=== PATIENT | female | born 1975 | race Caucasian/White ===

== ENCOUNTER 2021-08-16 09:34 | Outpatient (CLI) | payer OTHER, SELFPAY | END 2021-08-16 09:35 | disposition home or self-care (01) | LOC: ANHSURGERY 09:37 | PROVIDERS: PCP Internal Medicine; Visit Provider Obstetrics & Gynecology | DX: D25.9 Leiomyoma of uterus, unspecified (principal); Z01.818 Encounter for other preprocedural examination | CPT/HCPCS: 36415; 86850; 86900; 86901 ==

== ENCOUNTER 2021-08-22 18:48 | Observation (INO) | payer OTHER, SELFPAY ==
[2021-08-15 13:02] VITALS: BMI 24.5
--- NOTE | 2021-08-15 13:18 | PC.NURSE ---
Report to the Outpatient Waiting Room, entrance under the green pavilion located off [facility], at time 6:00 on date 08/21/21. OR Time: 7:30. - You and your visitor will be asked a series of questions to screen for COVID 19 for your protection. - Only one visitor is allowed at this time. - The patient visitor is requested to leave or wait in car when not with patient. - A mask is required within the hospital. Patients may have clear liquids (water, carbonated beverages, clear teas, apple juice) until 3 hours prior to surgery (4:30) with a maximum of 20 ounces. - No food from midnight until time of surgery Take the following medications with a SIP of water the morning of surgery: NONE Medications to discontinue per physician: VITAMINS/SUPPLEMENTS Date to take last dose: 08/17/21 Please no make-up, nail indian, hairspray, perfume, deodorant, or body powder the day of surgery. No jewelry (including any body piercings) or valuables the day of surgery, leave them at home. Please take a shower or bath the night before, or the morning of, surgery with an antibacterial soap. Wear comfortable, loose fitting clothing. - Jewelry must be removed prior to entering the operating room. Rings and piercings that are not removed may be cut off. - The hospital will not accept responsibility for valuables. - Please leave all valuables, including medications, at home the day of surgery. If you are going home after surgery, a licensed recycling collections driver must drive you home. - NO public transportation without another adult. - We recommend that an adult stay with you for 24 hours following discharge. - We also recommend that you do not drive, make important decision, drink alcoholic beverages, or take any drugs that were not prescribed by your health care provider for at least 24 hours after your discharge time. Follow any additional instructions given to you from your surgeon. If you or anyone in your household have experienced Covid symptoms in the past week, please notify your surgeon or the nurse liaison at the phone number below for possible testing. Telephone instructions given to PT Hali CROSS and asked if any additional questions and then verbalized understanding. Patient advised to call surgeon office or pre surgery nurse liaison [phone] if any additional questions.
--- NOTE | 2021-08-20 14:43 | WPDANESEPPF ---
Anes - Initial Pre Proc Eval Procedure: Operation Date: 08/21/21 07:30 Proposed Procedures p Total Laparoscopic Hysterectomy with Bilateral Salpingectomy - Gurpreet Gordon MD Date/Time: 08/20/21 14:43 Surgeon: Gurpreet Gordon MD Pre Op Diagnosis: uterine leiomyoma Patient Data Age: 46 Gender: F Height: 1.63 m Weight: 65 kg Allergies Allergy/AdvReac Type Severity Reaction Status Date / Time No Known Allergies Allergy Verified 08/21/21 07:05 Home Medications Medication Instructions Recorded Confirmed Type lactobacillus combination no.4 3 3,000 mmu cells PO DAILY 08/15/21 08/21/21 History billion cell capsule (Probiotic) multivitamin 1 tablet PO DAILY 08/15/21 08/21/21 History norethindrone (contraceptive) 0.35 1 tablet PO DAILY 08/15/21 08/21/21 History mg tablet Patient hx anesthesia problems: none Family hx anesthesia problems: none Results Review: All pre-operative results and documents have been reviewed as part of the pre-operative evaluation. [facility] Social History Social History Smoking status: Never smoker Alcohol intake: current Drinks per week: 4 Substance use: never Substance use type: does not use Living arrangements: with family Spiritual care concerns: No Anes - Eval Final PreProcedure Day of Procedure 08/20/21 14:43 Patient weight: normal Heart: regular rate and rhythm Lungs: clear to auscultation Airway: Mallampati scale class II Neurological: alert and oriented Last oral intake: >/= 8 hours ASA classification: II Emergent: no Anesthetic plan: proceed Anesthesia type and monitoring: general ETT and standard monitoring Results Review: All pre-operative results and documents have been reviewed as part of the pre-operative evaluation. Informed Consent: The patient's anesthetic plan and its attendant risks and benefits were discussed with the patient/family/POA. Questions were solicited and answers provided to the satisfaction of the patient/family/POA.
[2021-08-21] VITALS (11 sets, daily range): BP systolic 93–140; BP diastolic 63–77; PULSE 69–104; RESP 12–18; TEMP 36.6–37.4; O2SAT 97–100
[2021-08-21] MEDS: KETOROLAC 15 MG/ML VIAL (*BKC) IV PUSH (06:30)
[2021-08-21] MEDS: LACTATED RINGERS 1,000 ML 30 ML IV CONT ×2 (06:30→10:22)
[2021-08-21] MEDS: ACETAMINOPHEN 500 MG TABLET 1000 MG PO (06:37)
--- NOTE | 2021-08-21 07:14 | WPDHPUPDATE1 ---
History and Physical Update Update Date/Time: 08/21/21 07:14 History and Physical has been reviewed, including an updated exam of the patient. There are NO changes in the patient's condition. Risks, benefits, and alternatives have been discussed and questions answered. Patient agrees to proceed with procedure.
[2021-08-21] MEDS: ceFAZolin 2 GM/D5W 50 ML 2 GM/50 ML BAG IVPB (07:28)
[2021-08-21] MEDS: ceFAZolin SODIUM 1 GM VIAL (08:19)
--- NOTE | 2021-08-21 10:32 | W.PM.PROC2 ---
Procedure Note - Detailed Date of Procedure 08/21/21 Pre-op Diagnosis uterine leiomyoma Post-op Diagnosis Same Procedure Performed Total laparoscopic hysterectomy. Surgeon Gurpreet Gordon MD Anesthesia General Indications Severe dysmenorrhea Findings Enlarged fibroid uterus, normal-appearing ovaries, Description of Procedure This patient was taken to the operating room. She was prepped and draped in the dorsal lithotomy position after induction of general anesthesia. The uterine manipulator and Rick cup were placed. This was done with a speculum and tenaculum. The speculum was placed. The cervix was grasped with a tenaculum. The stay sutures were placed at 3 and 9:00 a.m.. The stay sutures of 0 Vicryl were brought through the appropriately sized Rick cup. The tip of the GISSEL manipulator was placed in the intrauterine cavity. The cup was slid into place around the cervix and into the fornices. It was locked into place. The sutures were then wrapped around the handle and tied under tension. A 5 mm skin incision was made in the left upper quadrant the abdomen. A 5 mm trocar was inserted into the intrauterine cavity under direct visualization of the scope. Pneumoperitoneum was achieved. A left lower quadrant 11 mm incision was made with scalpel. An 11 mm trocar was inserted into the anterior abdominal cavity under direct visualization the scope. A 5 mm infraumbilical incision was made with a scalpel and a 5 mm trocar was inserted the intra-abdominal cavity under direct visualization of the scope. Bilateral ureteral lysis was performed. This was done from the pelvic brim down to the uterine artery. This was done with careful dissection using sharp and blunt dissection. The fallopian tubes were removed bilaterally. The mesosalpinx around the fallopian tubes were cauterized transected with LigaSure cautery. This was done in a bilateral fashion from the ovary to the uterine cornua. The fallopian tube was transected at the uterine cornu and amputated. The tube was taken out the left lower quadrant trocar site. In a stepwise fashion along the lateral aspects of the uterus the round ligament and broad ligaments were cauterized transected down to the level of the uterine arteries. The uterus was amputated by transecting the cervix with monopolar cautery. The uterus was bifurcated, 1 fibroid was removed, using monopolar cautery a bifurcated lengthy uterus was created by cutting from the fundus down to the paracervical area. The uterus was then fixed to the Co cup with a suture. Bladder flap was created in the bladder was moved distally beyond the end of the cervix and over the Rick cup. The bilateral uterine arteries were cauterized and transected. Colpotomy was then performed. In a circumferential fashion the vagina was transected using unipolar cautery. The incision was made down on the Rick cup. The uterus and cervix were taken out through the vagina. The fibroid was removed that had been from the uterus. A pneumo occluder was placed in the vagina. The vaginal cuff was closed with a 0 V lock suture in a running fashion. The pelvis was irrigated with copious amounts antibiotic irrigation. The ureters were again examined and found to be intact and flowing freely under the uterine arteries into the bladder. The bladder was intact. It was examined directly. The vagina was irrigated with Betadine solution after removal of the Pneumo occluder. The patient was taken to recovery room. She was stable condition. Sponge lap and needle counts were correct x2. Estimated Blood Loss -200.0 Urine Output -550.0 Drains Yes Packing No Pathology Yes Complications No immediate complications Condition Stable Disposition Floor
[2021-08-21] MEDS: fentaNYL CITRATE INJ (*CRX) 100 MCG/2 ML VIAL 25 MCG IV PUSH ×8 (10:42→11:02)
--- NOTE | 2021-08-21 11:43 | ADMGEN ---
This patient, Hansa Coyle, was admitted to OB 2nd Floor Room 276-00. Patient/family oriented to hospital policies and general routines including ID bracelet, bed and alarms, visiting hours, pain management, procedures, bathroom and other care routines, personal items, smoking policy, room service/diet, and visiting hours. Information on how to activate the Rapid Response Team has been discussed. Patient/Family are encouraged to report perceived risks to care and to ask questions if they do not understand what they are told or what they should do.
[2021-08-21] MEDS: DEXTROSE 5%/0.45% SOD CHL 1,000 ML 125 ML IV CONT (12:32)
[2021-08-21] MEDS: KETOROLAC 30 MG/ML VIAL (*BKC) IV PUSH ×2 (12:32→18:34)
[2021-08-21] MEDS: HYDROcodone/acetaminophen (*CRX) 10-325 MG TABLET 1 TAB PO ×3 (16:10→22:25)
[2021-08-22] MEDS: HYDROcodone/acetaminophen (*CRX) 10-325 MG TABLET 1 TAB PO ×4 (05:26→17:57)
[2021-08-22 07:40] VITALS: BP 124/78; PULSE 93; RESP 16; TEMP 36.9; O2SAT 99
[2021-08-22] MEDS: ALPRAZolam (*CRX) 0.5 MG TABLET PO (07:58)
--- NOTE | 2021-08-22 07:59 | PM.GYNPNOP ---
MARKETING SALES REPRESENTATIVE - A/P Assessment and plan (1) Retention, urine: Code(s): R33.9 - Retention of urine, unspecified Status: Acute (2) Dysmenorrhea: Code(s): N94.6 - Dysmenorrhea, unspecified Status: Acute Plan Urinary retention x2, and try Xanax for relief of retention. Will stay most of the day until she voids unassisted. Postoperative Procedures: Procedures Operation Date: 08/21/21 07:30 Actual Procedure Side Surgeon p Total Laparoscopic Hysterectomy with Bilateral Salpingectomy Bilateral Gurpreet Gordon MD Postoperative day: 1 Postoperative status: doing well ( Urinary retention x2, consistent most the day for voiding, Xanax to assist in voiding.) Postoperative plan: see orders Time Spent With Patient Time: Total time spent is greater than 50% in coordination of care (as documented) at patient's floor/unit and/or counseling patient: Time with patient: less than 15 minutes MARKETING SALES REPRESENTATIVE- PN:Subj Post-Op Subjective Date/time seen: 08/22/21 07:59 Subjective: patient reports feeling better, patient has no complaints and pain is well controlled Exam Const: General: healthy appearing, comfortable and no acute distress Resp: Auscultation: clear to auscultation bilaterally, no rales, no rhonchi and no wheezes Cardio: Rate: regular rate Heart sounds: no click, no murmurs and no rubs GI: Inspection: non-distended Auscultation: normal bowel sounds Extrem: General: normal to inspection, no pedal edema and no calf tenderness MARKETING SALES REPRESENTATIVE - PN: Obj Data Vital Signs Vital Signs: Vital Signs - 24 hr 08/21/21 10:22 08/21/21 10:30 08/21/21 10:45 Temperature 98.3 F Pulse Rate 75 70 71 Respiratory Rate 15 14 14 Blood Pressure 109/77 116/74 109/67 Pulse Oximetry 100 100 98 Oxygen Delivery Simple Face Mask Simple Face Mask Room Air Oxygen Flow Rate 10 10 08/21/21 11:00 08/21/21 11:15 08/21/21 11:24 Temperature Pulse Rate 69 76 76 Respiratory Rate 12 14 14 Blood Pressure 112/74 115/69 110/68 Pulse Oximetry 97 100 100 Oxygen Delivery Room Air Room Air Room Air Oxygen Flow Rate 08/21/21 11:45 08/21/21 11:50 08/21/21 16:00 Temperature 97.9 F 99.4 F Pulse Rate 82 103 H Respiratory Rate 16 16 Blood Pressure 117/73 101/65 Pulse Oximetry 99 99 Oxygen Delivery Room Air Oxygen Flow Rate 08/21/21 16:00 08/21/21 18:35 08/21/21 23:15 Temperature 98.2 F 98.0 F Pulse Rate 101 H 104 H Respiratory Rate 16 16 Blood Pressure 93/63 L 106/74 Pulse Oximetry Oxygen Delivery Room Air Oxygen Flow Rate Intake/Output Intake/Output: Intake & Output 08/19/21 08/20/21 08/21/21 08/22/21 23:59 23:59 23:59 23:59 Intake Total 1050 600 Output Total 1850 700 Balance -800 -100 Meds/Results Medications: Active Medications Generic Name Dose Route Start Last Admin Trade Name Freq PRN Reason Stop Dose Admin Hydrocodone Bitart/Acetaminophen 1 tab 08/21/21 11:25 Hydrocodone/Acetaminophen (*Crx) 5-325 Mg Tablet PO Q3H PRN Pain Rated 5 or Less Hydrocodone Bitart/Acetaminophen 1 tab 08/21/21 11:25 08/22/21 05:26 Hydrocodone/Acetaminophen (*Crx) 10-325 Mg Tablet PO 1 tab Q3H PRN Administration Pain Rated 6 or Greater Dextrose/Sodium Chloride 1,000 mls @ 125 mls/hr 08/21/21 11:25 08/22/21 06:16 Dextrose 5% Sodium Chloride 0.45% IV CONT Not Given .Q8H AV Ibuprofen 600 mg 08/21/21 11:25 Ibuprofen 600 Mg Tablet PO Q6H PRN Cramping Ketorolac Tromethamine 30 mg 08/21/21 11:25 08/21/21 18:34 Ketorolac 30 Mg/Ml Vial (*Bkc) IV PUSH 08/26/21 11:24 30 mg Q6H PRN Administration Pain Rated 4-6 Naloxone HCl 0.1 mg 08/21/21 11:25 Naloxone Hcl 0.4 Mg/Ml Vial IV PUSH Q2M PRN Respiratory rate less than 10 Ondansetron HCl 4 mg 08/21/21 11:25 Ondansetron Inj 4 Mg/2 Ml Vial IV PUSH Q6H PRN Nausea And Vomiting
[2021-08-22] MEDS: IBUPROFEN 600 MG TABLET PO ×2 (09:06→17:57)
--- NOTE | 2021-08-22 09:13 | WPDANESPN ---
Anes - Prog Note Post-Op Date/Time: 08/22/21 09:13 Cardiovascular status: normal Respiratory status: normal Airway patency: baseline Mental status: baseline Post-Op hydration status: normal Vital Signs: Last Vital Signs Temp 36.7 C 08/21/21 23:15 Pulse 104 H 08/21/21 23:15 Resp 16 08/21/21 23:15 BP 106/74 08/21/21 23:15 Pulse Ox 99 08/21/21 16:00 O2 Del Method Room Air 08/22/21 07:30 O2 Flow Rate 10 08/21/21 10:30 Pain Score (VAS): 3 I/O: Intake & Output 08/21/21 08/22/21 08/22/21 23:59 07:59 15:59 Intake Total 500 600 Output Total 1650 700 Balance -1150 -100 Patient Feedback: Patient satisfied with anesthetic care.
--- NOTE | 2021-08-22 13:10 | PC.NURSE ---
Patient tried to void at 1215 with no relief. Patient up to attempt to void again at 1310 with no relief. Bladder scanner showed 344ml of urine. She was able to void 75ml after this. Dr. Gordon notified.
[2021-08-22 20:09] VITALS: BP 98/63; PULSE 87; RESP 16; TEMP 36.9; O2SAT 97
[2021-08-22 20:14] VITALS: PULSE 87; RESP 16; O2SAT 97
[2021-08-23] MEDS: IBUPROFEN 600 MG TABLET PO (01:07)
[2021-08-23] MEDS: HYDROcodone/acetaminophen (*CRX) 10-325 MG TABLET 1 TAB PO ×2 (01:07→05:45)
--- NOTE | 2021-08-23 08:21 | PM.GYNPNOP ---
ANODIC TREATER - A/P Assessment and plan (1) Retention, urine: Code(s): R33.9 - Retention of urine, unspecified Status: Acute Assessment and Plan: 46-year-old female postop day 2 from total laparoscopic hysterectomy bilateral salpingectomy. Patient's recovery was complicated by urinary retention. She was unable to void yesterday. Multiple straight caths were performed of her bladder. She had a Harris catheter overnight. It has been removed and we await today's attend voiding. She will be given Flexeril rule. Will check labs. Patient has some nausea. Consider imaging if she is not due better. Postoperative Procedures: Procedures Operation Date: 08/21/21 07:30 Actual Procedure Side Surgeon p Total Laparoscopic Hysterectomy with Bilateral Salpingectomy Bilateral Gurpreet Gordon MD Postoperative day: 2 Postoperative status: doing well Postoperative plan: see orders Time Spent With Patient Time: Total time spent is greater than 50% in coordination of care (as documented) at patient's floor/unit and/or counseling patient: Time with patient: less than 15 minutes ANODIC TREATER- PN:Subj Post-Op Subjective Date/time seen: 08/23/21 08:21 Subjective: patient reports feeling better, patient has no complaints and pain is well controlled Exam Const: General: healthy appearing, comfortable and no acute distress Resp: Auscultation: clear to auscultation bilaterally, no rales, no rhonchi and no wheezes Cardio: Rate: regular rate Heart sounds: no click, no murmurs and no rubs GI: Inspection: non-distended Auscultation: normal bowel sounds Extrem: General: normal to inspection, no pedal edema and no calf tenderness ANODIC TREATER - PN: Obj Data Vital Signs Vital Signs: Vital Signs - 24 hr 08/22/21 20:09 08/22/21 20:14 Temperature 98.5 F Pulse Rate 87 87 Respiratory Rate 16 16 Blood Pressure 98/63 L Pulse Oximetry 97 97 Oxygen Delivery Room Air Intake/Output Intake/Output: Intake & Output 08/20/21 08/21/21 08/22/21 08/23/21 23:59 23:59 23:59 23:59 Intake Total 3383 230 5669 Output Total 1850 1275 1400 Balance -614 -459 -350 Meds/Results Medications: Active Medications Generic Name Dose Route Start Last Admin Trade Name Freq PRN Reason Stop Dose Admin Hydrocodone Bitart/Acetaminophen 1 tab 08/21/21 11:25 Hydrocodone/Acetaminophen (*Crx) 5-325 Mg Tablet PO Q3H PRN Pain Rated 5 or Less Hydrocodone Bitart/Acetaminophen 1 tab 08/21/21 11:25 08/23/21 05:45 Hydrocodone/Acetaminophen (*Crx) 10-325 Mg Tablet PO 1 tab Q3H PRN Administration Pain Rated 6 or Greater Cyclobenzaprine HCl 10 mg 08/23/21 08:19 Cyclobenzaprine Hcl 10 Mg Tablet PO 08/23/21 08:20 ONCE ONE Dextrose/Sodium Chloride 1,000 mls @ 125 mls/hr 08/21/21 11:25 08/22/21 11:31 Dextrose 5% Sodium Chloride 0.45% IV CONT Not Given .Q8H AV Ibuprofen 600 mg 08/21/21 11:25 08/23/21 01:07 Ibuprofen 600 Mg Tablet PO 600 mg Q6H PRN Administration Cramping Ketorolac Tromethamine 30 mg 08/21/21 11:25 08/21/21 18:34 Ketorolac 30 Mg/Ml Vial (*Bkc) IV PUSH 08/26/21 11:24 30 mg Q6H PRN Administration Pain Rated 4-6 Naloxone HCl 0.1 mg 08/21/21 11:25 Naloxone Hcl 0.4 Mg/Ml Vial IV PUSH Q2M PRN Respiratory rate less than 10 Ondansetron HCl 4 mg 08/21/21 11:25 Ondansetron Inj 4 Mg/2 Ml Vial IV PUSH Q6H PRN Nausea And Vomiting
[2021-08-23 08:40] VITALS: BP 148/92; PULSE 96; RESP 18; TEMP 37.1; O2SAT 95
[2021-08-23] MEDS: ONDANSETRON INJ 4 MG/2 ML VIAL IV PUSH (08:40)
[2021-08-23] MEDS: CYCLOBENZAPRINE HCL 10 MG TABLET PO (10:32)
--- NOTE | 2021-09-22 22:05 | PM.DS ---
DS: Admitting Diagnosis Discharge Date 08/23/21 Admitting Diagnosis dysmenorrhea DS: Discharge Diagnosis Discharge Diagnosis (1) Dysmenorrhea: Code(s): N94.6 - Dysmenorrhea, unspecified Status: Acute DS: Summary Hospital Course Hospital Course: this person is a 46-year-old female presents to the hospital for surgery. She had severe dysmenorrhea. Total laparoscopic hysterectomy was performed. She recovered normally but required an extra day for pain control. She was ambulating, tolerating p.o., passing flatus at appropriate times. She was afebrile throughout her stay she was discharged home on postoperative day 2 Time Spent with Patient Time attestation: Total time spent providing and/or coordinating discharge services: DS: Data Data Completed and Pending Completed studies during hospitalization: Pending at discharge 08/21/21 10:01 Surgical [PTH] Routine Discharge Plan Discharge Discharging Clinician: Gurpreet Gordon Patient Disposition: Home, Self-Care Activity: may shower, no straining, may drive after 2 weeks and as tolerated Diet: as tolerated Discharge Instructions: Follow in 1 week per scheduled appointment Patient Instructions: Laparoscopic Hysterectomy (DC) Stand Alone Forms: General Discharge Instructions Follow-up/Referrals: Gurpreet Gordon MD [Physician] - Discharge Medications: New hydrocodone-acetaminophen 5-325 mg tablet 1 tablet PO Q4H PRN (Reason: pain) Qty: 25 0RF Continued multivitamin Tablet 1 tablet PO DAILY Probiotic 3 billion cell Capsule 3,000 mmu cells PO DAILY Rx Instructions: administer with a meal Discontinued norethindrone (contraceptive) 0.35 mg tablet 1 tablet PO DAILY Date of admission: 08/22/21 18:48 Primary Care Provider: MaurilioJc Admitting Provider: Gurpreet Gordon Attending physician on admission: Gurpreet Gordon Condition: Stable
== END 2021-08-23 13:10 | disposition home or self-care (01) ==
LOC: ANHSURGERY 18:50 → ANHOB2 18:50
PROVIDERS: Admitting Provider Obstetrics & Gynecology; PCP Internal Medicine; Visit Provider Obstetrics & Gynecology
PROC: 0UT9FZZ Resection of Uterus, Via Natural or Artificial Opening With Percutaneous Endoscopic Assistance (ICD-10-PCS; CPT 58571; principal; 2021-08-21 07:30)
DX: N94.6 Dysmenorrhea, unspecified (principal); D25.9 Leiomyoma of uterus, unspecified; R33.9 Retention of urine, unspecified
CPT/HCPCS: 58571; 36415; 86850; 86900; 86901; 88307; 99199; A9270; G0378; J0690; J1100; J1885; J2250; J2405; J2704; J2710; J3010; J7030; J7120

== ENCOUNTER 2021-09-10 17:46 | Emergency (ER) | payer OTHER, SELFPAY ==
[2021-09-10] VITALS (13 sets, daily range): BP systolic 106–151; BP diastolic 70–101; PULSE 79–93; RESP 11–18; TEMP 36.6; O2SAT 98–100
--- NOTE | ~2021-09-10 | CT_ITS ---
EXAMINATION: CTA chest PE protocol DATE: 09/10/2021 19:31 INDICATION: r/o DVT, hyst 08/21, CP, SOB TECHNIQUE: Computed tomography angiography (CTA) of the chest was performed with 100 mL Omnipaque-350 intravenous contrast timed to evaluate the pulmonary arteries. Coronal maximum intensity projection 3D-reconstructions were created by the technologist. The dose-length product (DLP) was 195.07 mGy-cm. Automated exposure control and iterative reconstruction technique were employed. COMPARISON: None. FINDINGS: Study quality: Adequate. Pulmonary arteries: No pulmonary emboli detected. Thoracic aorta: Normal. Lung parenchyma and airways: Clear. Thoracic inlet, axillae and chest wall: Unremarkable. Mediastinum: Normal. Heart and pericardium: Normal. Coronary artery calcifications: Absent. Pleura: Unremarkable. Upper abdomen: No significant finding. Bones: No acute osseous finding. IMPRESSION: No CT evidence of acute pulmonary embolus. Reviewed, dictated and finalized at location K.
--- NOTE | ~2021-09-10 | XR_ITS ---
EXAMINATION: XR chest 2V Exam Date/Time: 09/10/2021 18:35 CDT HISTORY: SOB AFTER PARTIAL HYSTERECTOMY 2 WEEKS AGO Comparison: None available. RESULT: Lines, tubes, and devices: None. Lungs and pleura: Clear. Cardiomediastinal silhouette: Unremarkable. Other: No acute osseous or upper abdominal finding. IMPRESSION: No acute cardiopulmonary process. Reviewed, dictated and finalized at location K.
--- NOTE | 2021-09-10 17:54 | ECG_ITS ---
Measurements Intervals Dunn Rate: 75 P: 31 LA: 125 QRS: 18 QRSD: 84 T: 29 QT: 366 QTc: 410 Interpretive Statements SINUS RHYTHM WITH SINUS ARRHYTHMIA LOW QRS VOLTAGE IN PRECORDIAL LEADS BORDERLINE ECG Electronically Signed On 09-10-2021 19:30:53 CDT by Rashawn Ruano D.O.
[2021-09-10 18:17] LABS: Basophils Percent Auto 0.5 % (0.2-1.2); Eosinophils Absolute Auto 0.4 K/mm3 (0-0.3); Eosinophils Percent Auto 4.8 % (0-4.4); Hematocrit 34.4 % (37.0-47.0); Immature Granulocyte Absolute 0.02 K/mm3 (0.00-0.031); Immature Granulocyte Percent A 0.2 % (0-0.5); Lymphocytes Absolute Auto 2.74 K/mm3 (0.9-3.2); Mean Corpuscular HGB Conc 34.9 g/dl (32-36); Mean Corpuscular Hemoglobin 31.7 pg (26-34); Mean Platelet Volume 8.9 fl (7.4-10.4); Monocytes Absolute Auto 0.5 K/mm3 (0.1-0.6); Monocytes Percent Auto 5.5 % (2.6-8.5); Neutrophils Absolute Auto 4.7 K/mm3 (1.3-6.7); Platelet Count Result 355 k/mm3 (150-375); Red Blood Count 3.78 M/mm3 (4.2-5.4); Red Cell Distribution Width 12.3 % (11.5-14.5); White Blood Count 8.3 K/mm3 (4.5-10.0)
[2021-09-10 18:30] LABS: Alanine Aminotransferase 9 U/L (6-35); Albumin Level 4.8 g/dL (3.5-5.1); Alkaline Phosphatase 68 U/L (38-126); Anion Gap 5 mmol/L (8-16); Aspartate Amino Transferase 19 U/L (14-36); Bilirubin,Total 0.6 mg/dL (0.2-1.3); Blood Urea Nitrogen 12 mg/dL (7-17); Calcium 9.1 mg/dL (8.4-10.2); Carbon Dioxide 27 mmol/L (22-30); Chloride 104 mmol/L (98-107); Estimated CRCL calculation 76 ml/min; Estimated Glomerular Filt Rate > 60; Glucose 100 mg/dL (65-110); Lipase 92 U/L (23-300); Potassium 3.9 mmol/L (3.4-5.0); Sodium 136 mmol/L (137-145)
[2021-09-10 18:33] LABS: INR 1.1; Partial Thromboplastin Time 31.3 SECONDS (22.3-36.8); Prothrombin Time 13.7 Seconds (11.1-14.7)
[2021-09-10 18:41] LABS: Troponin I < 0.012 ng/mL (0.000-0.034)
--- NOTE | 2021-09-10 19:08 | ED.CHESTPAIN ---
HPI - Chest Pain General Chief Complaint: Chest Pain Stated Complaint: CP, SOB Time Seen by Provider: 09/10/21 18:19 Source: patient Mode of arrival: ambulatory Limitations: no limitations History of Present Illness HPI narrative: Patient is a 46-year-old female who presents to the ED with report of chest pain and shortness of breath. Patient had a hysterectomy performed on 08/[address] Gordon. She went back to work yesterday. She developed midsternal chest heaviness around 4pm yesterday afternoon. She also reported having shortness of breath with prolonged talking or exertion. She called her SECURITY SYSTEMS ENGINEER today and was referred to the ED for further evaluation. Denies any nausea, vomiting, BLE pain or edema. She has had some intermittent lower ABD cramping and vaginal spotting since the surgery, but denies any worsening of this lately. No fever, chills, cough. Patient denies history of hypertension, hyperlipidemia, diabetes, smoking. No family history of cardiac disease that she is aware of. Related Data Home Medications Medication Instructions Recorded Confirmed lactobacillus combination no.4 3 3,000 mmu cells PO DAILY 08/15/21 08/21/21 billion cell capsule (Probiotic) multivitamin 1 tablet PO DAILY 08/15/21 08/21/21 Allergies Allergy/AdvReac Type Severity Reaction Status Date / Time No Known Allergies Allergy Verified 09/10/21 17:59 Review of Systems Review of Systems: CONSTITUTIONAL: Denies fever, chills, or sweats. ENT: Denies rhinorrhea, congestion, sore throat. CARDIOVASCULAR: Reports midsternal chest heaviness. Denies palpitations or BLE edema. RESPIRATORY: Reports HARVEY. Denies cough or hemoptysis. GASTROINTESTINAL: Denies abdominal pain, nausea, vomiting, or diarrhea. MUSCULOSKELETAL: Denies BLE pain, back pain. All systems reviewed & are unremarkable except as noted in HPI and below PMFSH Past Medical History Medical History Dysmenorrhea Surgical History Surgical History (Updated 09/10/21 @ 21:36 by Annalee Flor PA-C) History of hysterectomy Social History Social History Smoking status: Never smoker Alcohol intake: current Drinks per week: 4 Substance use: never Substance use type: does not use Spiritual care concerns: No Exam Narrative: GENERAL: Well appearing, well-nourished, non-toxic, in no acute distress. HEAD: Normocephalic, atraumatic. NECK: Supple. No adenopathy, no masses. RESPIRATORY: Airway patent, respirations nonlabored. Clear to auscultation bilaterally, no rales, rhonchi, wheezing. No distress or tachypnea. CARDIOVASCULAR: Regular rate and rhythm without murmurs, rubs, or gallops. Peripheral pulses 2+ and equal bilaterally. ABDOMINAL: Soft, nontender, nondistended, no hepatosplenomegaly. Normoactive BS. MUSCULOSKELETAL: Moves all extremities. Strength/ROM intact without gross deformities or TTP. No edema. No calf tenderness. No chest wall tenderness. SKIN: Warm, dry, normal color. No rashes. NEURO: A&O X3. Speech clear. Cranial nerves II-XII grossly intact. Steady gait. No ataxic movements. PSYCHIATRIC: Appropriate mood and affect. Normal interaction. Course Vital Signs Vital signs: Vital Signs Temperature 97.9 F 09/10/21 17:55 Pulse Rate 83 09/10/21 17:55 Respiratory Rate 18 09/10/21 17:55 Blood Pressure 118/76 09/10/21 17:55 Pulse Oximetry 100 09/10/21 17:55 Temperature 97.9 F 09/10/21 17:55 Pulse Rate 87 09/10/21 21:40 Respiratory Rate 16 09/10/21 21:40 Blood Pressure 113/70 09/10/21 21:40 Pulse Oximetry 99 09/10/21 21:40 MDM - Chest Pain MDM Narrative Medical decision making narrative: Patient presented to ED with report of chest heaviness and mild SOB w/ exertion. Status post hysterectomy 2 weeks ago. Vital signs stable upon arrival. No tachycardia or hypoxia. Laboratory evaluation fairly unremarkabl
[2021-09-10 21:33] LABS: Troponin I < 0.012 ng/mL (0.000-0.034)
== END 2021-09-10 21:43 | disposition home or self-care (01) ==
PROVIDERS: Emergency Provider Emergency Medicine; PCP Internal Medicine
DX: R07.89 Other chest pain (principal); Z90.710 Acquired absence of both cervix and uterus
CPT/HCPCS: 36415; 71046; 71275; 80053; 83690; 84484; 85025; 85610; 85730; 93005; 99284; Q9967

== ENCOUNTER 2022-01-28 09:59 | Emergency (ER) | payer OTHER, SELFPAY ==
[2022-01-28 10:05] VITALS: BP 125/87; PULSE 98; RESP 18; TEMP 36.9; O2SAT 98
--- NOTE | 2022-01-28 11:31 | ED.URI ---
HPI - URI/Sore Throat General Chief Complaint: Upper Respiratory Infection Stated Complaint: Cough Time Seen by Provider: 01/28/22 11:31 Source: patient and RN notes reviewed Mode of arrival: ambulatory Limitations: no limitations History of Present Illness HPI Narrative: 46-year-old female presented for complaints of cough and nasal congestion for about 1 week. She endorses symptoms are worse at night. She endorses right ear pain. She denies shortness of breath, nausea, vomiting, diarrhea, fever or chills. Taking Mucinex and DayQuil for symptoms. 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 MD elicited complaint: cough Related Data Allergies Allergy/AdvReac Type Severity Reaction Status Date / Time No Known Allergies Allergy Verified 09/10/21 17:59 Review of Systems Review of Systems: ROS per HPI [facility] Past Medical History Medical History Dysmenorrhea Surgical History Surgical History History of hysterectomy Social History Social History Smoking status: Never smoker Alcohol intake: current Drinks per week: 4 Substance use: never Substance use type: does not use Spiritual care concerns: No Exam Narrative: GENERAL: well-appearing, nontoxic no acute distress. HEAD: Normocephalic EYES: PERRLA, conjunctivae clear ENT: Mucous membranes moist. leftTM pearly zavala with dull light reflex; right TM erythematous with normal light reflex, no tragal tenderness. Oropharynx erythematous without lesions or exudate, no drooling, no hoarseness, no trismus, uvula midline. No tripod positioning, muffled voice, soft palate or pharyngeal wall bulging NECK: Supple. No lymphadenopathy CHEST: Clear to auscultation, breath sounds equal. No wheezing, rhonchi, rales, or stridor. No respiratory distress, speaks in full sentences. HEART: Regular rate and rhythm. No murmur heard. SKIN: Warm, dry, no rash. NEURO: Alert and oriented x3. PSYCH: Normal mood and affect Course Course Emergency Course: Patient is aware of diagnosis, understands and agrees to treatment plan. Anticipatory guidance given. Patient agrees to follow-up as directed and is aware of reasons to seek care at the emergency department. Portions of this record may have been created with voice recognition software Level of Care: Express Care Visit Vital Signs Vital signs: Vital Signs Temperature 98.4 F 01/28/22 10:05 Pulse Rate 98 01/28/22 10:05 Respiratory Rate 18 01/28/22 10:05 Blood Pressure 125/87 01/28/22 10:05 Pulse Oximetry 98 01/28/22 10:05 Oxygen Delivery Room Air 01/28/22 10:05 Temperature 98.4 F 01/28/22 10:05 Pulse Rate 98 01/28/22 10:05 Respiratory Rate 18 01/28/22 10:05 Blood Pressure 125/87 01/28/22 10:05 Pulse Oximetry 98 01/28/22 10:05 Oxygen Delivery Room Air 01/28/22 10:05 reviewed MDM - URI/Sore Throat MDM Narrative Medical decision making narrative: Advised supportive measures and signs/symptoms to go to the ER. Pt is appropriate for outpt treatment and f/u. Differential Diagnosis Differential diagnosis: Likely upper respiratory infection, sinusitis and viral infection Discharge Plan Discharge Clinical Impression: Upper respiratory infection Patient Disposition: Home, Self-Care Condition: Stable Instructions: Upper Respiratory Infection (ED) Additional Instructions: Recommend Flonase spray and Zyrtec (or Claritin/Adrianne) over the counter Cough syrup may cause drowsiness; avoid driving or take it at night time. Tylenol 1000mg every 8 hours as needed for pain Symptomatic treatment includes: rest, fluids, and increase humidity of the air at home. Follow up with your primary care provider in 1 week. Go to the ER for worsening symptoms or con
== END 2022-01-28 11:44 | disposition home or self-care (01) ==
PROVIDERS: Emergency Provider Nurse Practitioner Family; PCP Internal Medicine
DX: J06.9 Acute upper respiratory infection, unspecified (principal)
CPT/HCPCS: 99213; G0463

== ENCOUNTER 2023-01-16 08:15 | Emergency (ER) | payer OTHER, SELFPAY ==
[2023-01-16 08:26] VITALS: BP 125/78; PULSE 95; RESP 16; TEMP 36.4; O2SAT 98
--- NOTE | 2023-01-16 08:57 | ED.URI ---
HPI - URI/Sore Throat General Chief Complaint: Upper Respiratory Infection Stated Complaint: sore throat/ears Time Seen by Provider: 01/16/23 08:57 Source: patient, RN notes reviewed and old records reviewed Mode of arrival: ambulatory Limitations: no limitations History of Present Illness HPI Narrative: 47 year old female who presents to [facility] care with complaints of sore throat and some ear pain for the past 2 days. Patient reports she has been taking DayQuil and NyQuil and some Tylenol for her symptoms with increased pain to her throat last p.m.. Patient reports no fevers, chills, sweats, headaches denies any body aches or acute cough. MD elicited complaint: sore throat and other (ear pain) Pertinent past history: other (strep in past) Onset (ago): day(s) (2) Pain scale (0-10): 7 Able to tolerate fluids by mouth: Yes Exacerbating factors: swallowing Associated symptoms: sore throat, ear pain and other (fatigue) Treatments prior to arrival: acetaminophen and other (DayQuil and NyQuil) Related Data Allergies Allergy/AdvReac Type Severity Reaction Status Date / Time No Known Allergies Allergy Verified 01/16/23 08:59 Review of Systems Review of Systems: CONSTITUTIONAL: Denies malaise, chills, sweats, or fever. EYES: Denies visual changes, redness, or discharge. ENT: Reports rhinorrhea, congestion,no sinus pain,positive for otalgia and positive for sore throat. CARDIOVASCULAR: Denies chest pain, palpitations, or edema. RESPIRATORY: Reports no acute cough.? Denies dyspnea. GASTROINTESTINAL: Denies abdominal pain, nausea, vomiting, diarrhea SKIN: Denies rash or itching. MUSCULOSKELETAL: Denies myalgia. NEUROLOGIC: Denies headache. All systems reviewed & are unremarkable except as noted in HPI and below PMFSH Past Medical History Medical History Dysmenorrhea Surgical History Surgical History History of hysterectomy Social History Social History Smoking status: Never smoker Alcohol intake: current Drinks per week: 4 Substance use: never Substance use type: does not use Living arrangements: with family Spiritual care concerns: No Comments At time of signature, agree with nursing past medical, surgical, social and family history. There is no relevant family history pertinent to the presenting complaint Exam Narrative: GENERAL: Well-appearing, well-nourished, and in no acute distress. HEAD: Normocephalic EYES: PERRLA, conjunctivae clear ENT: Nares clear, turbinates edematous and erythematous, clear discharge. Mucous membranes moist. TM pearly zavala with dull light reflex bilaterally; no tragal tenderness. Oropharynx erythematous without lesions. Tonsils red enlarged and without exudate, no drooling, no hoarseness, no trismus, uvula midline.some post nasal drainage NECK: Supple. lymphadenopathy CHEST: Clear to auscultation, breath sounds equal. No wheezing, rhonchi, rales, or stridor. No respiratory distress, speaks in full sentences.SAO2 98% on room air HEART: Regular rate and rhythm. No murmur heard. SKIN: Warm, dry, no rash. NEURO: Alert and oriented x3. PSYCH: Normal mood and affect Course Course Emergency Course: Patient is aware of diagnosis, understands and agrees to treatment plan.? Anticipatory guidance given.? Patient agrees to follow-up as directed and is aware of reasons to seek care at the emergency department. Portions of this record may have been created with voice recognition software Level of Care: Express Care Visit Vital Signs Vital signs: Vital Signs Temperature 36.4 C L 01/16/23 08:26 Pulse Rate 95 01/16/23 08:26 Respiratory Rate 16 01/16/23 08:26 Blood Pressure 125/78 01/16/23 08:26 Pulse Oximetry 98 01/16/23 08:26 Oxygen Delivery Room Air 01/16/23
== END 2023-01-16 09:08 | disposition home or self-care (01) ==
PROVIDERS: Emergency Provider Registered Nurse; PCP Internal Medicine
DX: J02.0 Streptococcal pharyngitis (principal)
CPT/HCPCS: 87880; 99213; G0463

== ENCOUNTER 2024-11-14 06:15 | Day surgery (SDC) | payer OTHER, SELFPAY ==
[2024-10-19 14:37] VITALS: BMI 25.8
[2024-11-03 10:54] VITALS: BMI 25.7
[2024-11-14 08:39] VITALS: BMI 25.4
[2024-11-14 08:40] VITALS: BP 124/81; PULSE 74; RESP 16; TEMP 36.6; O2SAT 100
--- OUTSIDE RECORDS SUMMARY | 2024-11-14 08:46 | XMS_ITS | Clinical Summary ---
Author Organization [facility] Address [address] [place] [id number] Care Team Providers Care Big Data Solutions Architect Name Role Phone No, Physician Primary Care Provider [phone] Allergies No known active allergies Medications naproxen (Anaprox DS) 550 mg tablet Anaprox DS 550 MG Oral Tablet QTY: 60 tablet Days: 30 Refills: 1 Written: 04/28/19 Patient Instructions: as directed - one po q 12 hours prn - dysmenorrhea 0 Active norethindrone (Mouna) 0.35 mg tablet daily 0 Active cholecalciferol (VITAMIN D-3) 5,000 unit capsule Take 5,000 Units by mouth daily Active Active Problems No known active problems Immunizations Immunization Administration Dates Next Due Td, adsorbed 02/23/2002 Surgical History Surgery Date Site/Laterality Comments HYSTERECTOMY 10/24/2021 partial Medical History Medical History Date Comments Migraine Arthritis Uterine fibroid Family History Medical History Relation Name Comments Hodgkin's lymphoma Father Colon cancer Paternal Grandfather Breast cancer Neg Hx Ovarian cancer Neg Hx Thyroid cancer Neg Hx Relation Name Status Comments Father Paternal Grandfather Social History Tobacco Use Types Packs/Day Years Used Date Smoking Tobacco: Never Smokeless Tobacco: Never Comments No Sex and Gender Information Value Date Recorded Sex Assigned at Not on file 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 Gender Identity Not on file Sexual Orientation Not on file Obstetrics History Para Term AB IAB SAB Ectopic Multiple Livin g Live Births 0 0 0 0 0 0 0 0 0 0 0 Last Filed Vital Signs Vital Sign Reading Time Taken Comments Blood Pressure 132/79 12/25/2020 9:07 AM CDT Pulse 63 12/25/2020 9:07 AM CDT Temperature 36.8 C (98.2 F) 12/25/2020 9:07 AM CDT Respiratory Rate 20 12/25/2020 9:07 AM CDT Oxygen Saturation 99% 12/25/2020 9:07 AM CDT Inhaled Oxygen Concentration - - Weight 66.7 kg (147 lb) 12/25/2020 9:07 AM CDT Height 162.6 cm (5' 4) 11/14/2022 3:17 PM CDT Body Mass Index 24.49 12/25/2020 9:07 AM CDT Plan of Treatment Health Maintenance Due Date Last Done Comments Colon Cancer Screening-Colonoscopy 1976 Depression Screening 1976 Hepatitis C Screening 1976 Hepatitis B Screening 1994 Regular Well Visit/Exam 18-64 1994 DTaP/Tdap/Td Vaccine (1 - Tdap) 02/24/2002 02/23/2002 Breast Cancer Screening-Mammogram 11/15/2023 11/14/2022, 11/30/2020, 05/05/2019, Additional history exists Covid-19 Vaccine ( season) 2024 08/03/2020, 07/13/2020 Influenza Vaccine (#1) 2024 Pneumococcal vaccine <65 Aged Out No longer eligible based on patient's age to complete this topic Procedures Procedure Name Priority Date/Time Associated Diagnosis Comments SCREENING MAMMOGRAM BILATERAL W FELICITAS Schedule Routine, Read Routine (OP Routine) 11/14/2022 3:22 PM CDT Encounter for screening mammogram for malignant neoplasm of breast from Last 3 Months or Most Recently Relevant to Health Maintenance Results * Screening Mammogram Bilateral W Felicitas (11/14/2022 3:22 PM CDT) Anatomical Region Laterality Modality Breast Bilateral Mammography 11/14/2022 3:33 PM CDT Impressions 11/14/2022 3:33 PM CDT There is no mammographic evidence of malignancy. A 1 year screening mammogram is recommended. BI-RADS: 2 - Benign. The patient has been or will be contacted. The patient will be entered into a reminder system with a target due date of 1 year for her next mammogram. Electronically signed by: Eva Alvares M.D. Narrative 11/14/2022 3:33 PM CDT EXAMINATION: SCREENING MAMMOGRAM BILATERAL W FELICITAS ORDERING HEALTHCARE PROVIDER: MELISSA INIGUEZ HISTORY: Routine screening mammography. COMPARISON: 07/05/2021, 11/30/2020, 03/02/2020, 06/09/2019 TECHNIQUE: CC and MLO views of the bilateral breasts were obtained with digital technique using breast tomosynthesis with C view. Computer aided detection was utilized. FINDINGS: DENSITY: The tissue of the bilateral breasts is heterogeneously dense, which may obscure small masses. BREASTS: Benign masses in the right breast are stable. No new suspicious mammographic finding in either breast. us Melissa Iniguez MD IMG MAMMO PROCEDURES Final Result from Last 3 Months or Most Recently Relevant to Health Maintenance Insurance [facility] CHOICE PLUS [facility] CHOICE PLUS Care Teams Big Data Solutions Architect Relationship Specialty Start Date End Date No, Physician PCP - General 10/22/22
--- OUTSIDE RECORDS SUMMARY | 2024-11-14 08:46 | XMS_ITS | Encounter Summary ---
Author Organization [facility] Healthcare Address [address] [place] [address] Care Team Providers Care President Finance Company Name Role Phone Napoleon Armando MD Primary Care Provider + No, Physician Primary Care Provider [phone] Reason for Visit * Reason Onset Date Comments Scheduling Appointments 11/29/2020 Confirmi ng mammogram appt- no answer Encounter Details Date Type Department Care Team (Late st Contact Info) Description 11/29/2020 Telephone [facility] [address] [place] [id number] [address] Scheduling Appointments (Confirming mammogram appt- no answer) Social History Tobacco Use Types Packs/Day Years Used Date Smoking Tobacco: Never Assessed Comments No Sex and Gender Information Value Date Recorded Sex Assigned at Not on file 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
[2024-11-14] MEDS: LACTATED RINGERS 1,000 ML 150 ML IV CONT (09:01)
--- NOTE | 2024-11-14 09:37 | PM.IMHP ---
H&P: HPI History of Present Illness Date/Time: 11/14/24 09:37 Chief Complaint: Screening colonoscopy Narrative: This is the patient's first colonoscopy. There are no GI symptoms and there is no family history of colorectal cancer. Review of Systems Review of Systems: All systems reviewed & are unremarkable except as noted in HPI and below PMFSH Past Medical History Medical History (Updated 10/17/24 @ 00:21 by LESLEY Lamas) Migraines Encounter to establish care Post-op pain Retention, urine Dysmenorrhea Surgical History Surgical History History of hysterectomy Social History Social History Smoking status: Never smoker Alcohol intake: current Alcohol use details: Occasionally Substance use: never Substance use type: does not use Do You Feel Safe in your Home?: Yes Lack of Transportation: No Lack of Food: Never True Current Housing: I Have Housing Concerned About Future Housing: No Difficulty Paying Gas/Electric Bills: No Difficulty Paying for Meds: No Currently Unemployed: No Difficulty w/ Childcare or Family Care: No Living arrangements: with family Gender identity (if verbalized by the patient): Female Sexual Orientation (if Verbalized by the Patient): Straight or Heterosexual Spiritual care concerns: No Agree to blood products: Yes Meds Home Medications and Allergies Home Medications ?Medication ?Instructions ?Recorded ?Confirmed ?Type zolmitriptan 2.5 mg tablet 2.5 mg PO ONCE PRN migraine 09/22/23 11/14/24 Rx headache #9 tabs sumatriptan succinate 50 mg tablet See Rx Instructions PO .COMPLEX #9 09/13/24 11/14/24 Rx (Imitrex) tabs fluoxetine 20 mg capsule 20 mg PO DAILY #90 caps 10/16/24 11/14/24 Rx Lactobacillus acidophilus 10 100 mmu cells PO DAILY 11/03/24 11/14/24 History billion cell capsule (Probiotic) Allergies Allergy/AdvReac Type Severity Reaction Status Date / Time No Known Allergies Allergy Verified 11/14/24 08:31 Vital Signs Vital Signs - 24 hr 11/14/24 08:40 Temperature 97.9 F Pulse Rate 74 Respiratory Rate 16 Blood Pressure 124/81 Pulse Oximetry 100 Oxygen Delivery Room Air Exam Const: General: cooperative and healthy appearing Resp: Effort & Inspection: normal respiratory effort and able to speak in complete sentences Auscultation: clear to auscultation bilaterally Cardio: Rate: regular rate Rhythm: regular rhythm GI: Inspection: normal to inspection GI Palp: No No hepatosplenomegaly present Auscultation: normal bowel sounds Rectal Exam: deferred Skin: General skin exam: normal color Psych: Appearance: grossly normal Mental Status: mental status grossly normal Assessment and Plan Assessment and plan (1) Screening for colon cancer: Code(s): Z12.11 - Encounter for screening for malignant neoplasm of colon Status: Acute Assessment and Plan: The patient is deemed a good candidate for the procedure. Consent signed. Will proceed.
--- NOTE | 2024-11-14 09:43 | WPDANESEPPF ---
Anes - Initial Pre Proc Eval Procedure: Operation Date: 11/14/24 08:00 Proposed Procedures p Screening Colonoscopy - Simon Chery MD Date/Time: 11/14/24 09:43 Surgeon: Simon Chery MD Pre Op Diagnosis: Encounter for screening for malignant neoplasm of Patient Data Age: 49 Gender: F Height: 1.63 m Weight: 67.3 kg Last Vital Signs Temp 97.9 F 11/14/24 08:40 Pulse 74 11/14/24 08:40 Resp 16 11/14/24 08:40 BP 124/81 11/14/24 08:40 Pulse Ox 100 11/14/24 08:40 O2 Del Method Room Air 11/14/24 08:40 Allergies Allergy/AdvReac Type Severity Reaction Status Date / Time No Known Allergies Allergy Verified 11/14/24 08:31 Home Medications ?Medication ?Instructions ?Recorded ?Confirmed ?Type zolmitriptan 2.5 mg tablet 2.5 mg PO ONCE PRN migraine 09/22/23 11/14/24 Rx headache #9 tabs sumatriptan succinate 50 mg tablet See Rx Instructions PO .COMPLEX #9 09/13/24 11/14/24 Rx (Imitrex) tabs fluoxetine 20 mg capsule 20 mg PO DAILY #90 caps 10/16/24 11/14/24 Rx Lactobacillus acidophilus 10 100 mmu cells PO DAILY 11/03/24 11/14/24 History billion cell capsule (Probiotic) Patient hx anesthesia problems: none Family hx anesthesia problems: none Results Review: All pre-operative results and documents have been reviewed as part of the pre-operative evaluation. [facility] Past Medical History Medical History (Updated 10/17/24 @ 00:21 by LESLEY Lamas) Migraines Encounter to establish care Post-op pain Retention, urine Dysmenorrhea Surgical History Surgical History History of hysterectomy Social History Social History Smoking status: Never smoker Alcohol intake: current Alcohol use details: Occasionally Substance use: never Substance use type: does not use Do You Feel Safe in your Home?: Yes Lack of Transportation: No Lack of Food: Never True Current Housing: I Have Housing Concerned About Future Housing: No Difficulty Paying Gas/Electric Bills: No Difficulty Paying for Meds: No Currently Unemployed: No Difficulty w/ Childcare or Family Care: No Living arrangements: with family Gender identity (if verbalized by the patient): Female Sexual Orientation (if Verbalized by the Patient): Straight or Heterosexual Spiritual care concerns: No Agree to blood products: Yes Anes - Eval Final PreProcedure Day of Procedure 11/14/24 09:43 Heart: regular rate and rhythm Lungs: clear to auscultation Airway: Mallampati scale class II Neurological: alert and oriented Last oral intake: >/= 8 hours Anesthetic plan: proceed Anesthesia type and monitoring: monitored anesthesia care Results Review: All pre-operative results and documents have been reviewed as part of the pre-operative evaluation. Informed Consent: The patient's anesthetic plan and its attendant risks and benefits were discussed with the patient/family/POA. Questions were solicited and answers provided to the satisfaction of the patient/family/POA.
--- NOTE | 2024-11-14 09:44 | WPDANESPN ---
Anes - Prog Note Post-Op Date/Time: 11/14/24 09:44 Vital Signs: Last Vital Signs Temp 97.9 F 11/14/24 08:40 Pulse 74 11/14/24 08:40 Resp 16 11/14/24 08:40 BP 124/81 11/14/24 08:40 Pulse Ox 100 11/14/24 08:40 O2 Del Method Room Air 11/14/24 08:40 Pain Score (VAS): no Patient Feedback: Patient satisfied with anesthetic care.
[2024-11-14 10:06] VITALS: BP 108/88; PULSE 88; RESP 16; O2SAT 100
[2024-11-14 10:16] VITALS: BP 100/85; PULSE 78; RESP 16; O2SAT 100
[2024-11-14 10:26] VITALS: BP 127/72; PULSE 65; RESP 16; O2SAT 100
== END 2024-11-14 10:45 | disposition home or self-care (01) ==
PROVIDERS: PCP Clinical Nurse Specialist; Visit Provider Internal Medicine Gastroenterology
PROC: 0DJD8ZZ Inspection of Lower Intestinal Tract, Via Natural or Artificial Opening Endoscopic (ICD-10-PCS; CPT 45378; principal; 2024-11-14 08:00)
DX: Z12.11 Encounter for screening for malignant neoplasm of colon (principal)
CPT/HCPCS: 45378

== ENCOUNTER 2024-12-06 15:42 | Outpatient (CLI) | payer OTHER, SELFPAY ==
--- NOTE | ~2024-12-06 | MR_ITS ---
EXAMINATION: MR brain/brain stem wo/w con DATE: 12/06/2024 16:34 INDICATION: Migraine, unspecified, not intractable. TECHNIQUE: Magnetic resonance imaging (MRI) of the brain and brainstem was performed without and with 13 mL MultiHance intravenous contrast. COMPARISON: None. FINDINGS: There is no intracranial hemorrhage, acute infarction, or abnormal intracranial mass lesion. There are scattered areas of nonspecific increased T2- weighted signal intensity in the cerebral white matter. The ventricles are normal in size. There is mild mucosal thickening in the ethmoid sinuses. The orbits are normal. The mastoid air cells are normal. IMPRESSION: 1. Mild nonspecific cerebral white matter disease. The differential diagnosis includes premature chronic small vessel ischemic disease (especially if the patient has cardiovascular risk factors), demyelinating disease such as multiple sclerosis, drug abuse, vasculitis, or reactive astrocytosis (gliosis) secondary to nonspecific etiology. Reviewed, dictated and finalized at location E. IMPRESSION: 1. Mild nonspecific cerebral white matter disease. The differential diagnosis i ncludes premature chronic small vessel ischemic disease (especially if the kevin ent has cardiovascular risk factors), demyelinating disease such as multiple sc lerosis, drug abuse, vasculitis, or reactive astrocytosis (gliosis) secondary t o nonspecific etiology.
--- OUTSIDE RECORDS SUMMARY | 2024-12-06 17:17 | XMS_ITS | Clinical Summary ---
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
--- OUTSIDE RECORDS SUMMARY | 2024-12-06 17:17 | XMS_ITS | Encounter Summary ---
Author Organization [facility] Healthcare Address [address] [place] [address] Care Team Providers Care Avionics Engineer Name Role Phone Napoleon Armando MD Primary Care Provider + No, Physician Primary Care Provider [phone] Reason for Visit * Reason Onset Date Comments Scheduling Appointments 11/29/2020 Confirmi ng mammogram appt- no answer Encounter Details Date Type Department Care Team (Late st Contact Info) Description 11/29/2020 Telephone [facility] [address] [place] [id number] [address] Scheduling Appointments (Confirming mammogram appt- no answer) Social History Tobacco Use Types Packs/Day Years Used Date Smoking Tobacco: Never Assessed Comments No Sex and Gender Information Value Date Recorded Sex Assigned at Not on file 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
== END 2024-12-06 15:43 | disposition home or self-care (01) ==
PROVIDERS: PCP Clinical Nurse Specialist; Visit Provider Clinical Nurse Specialist
DX: G43.909 Migraine, unspecified, not intractable, without status migrainosus (principal); R90.82 White matter disease, unspecified
CPT/HCPCS: 70553; A9577